=== PATIENT | female | born 1965 | race Caucasian/White ===

== ENCOUNTER 2016-12-16 20:54 | Emergency (ER) | payer OTHER ==
[~2016-12-16] VITALS: Ht 160 cm; Wt 70.3 kg
[~2016-12-16 20:54] MED LIST: ASPIR-LOW81 MG PO; ATARAX,VISTARIL25 MG PO; ATIVAN1 MG PO; Aspirin E.C. PO; BUSPAR5 MG PO; CIPROFLOXACIN250 MG PO; Halfprin PO; LAMICTAL25 MG PO; LEXAPRO10 MG PO; LORAZEPAM0.5 MG PO; METHOCARBAMOL500 MG PO; NO HOME MEDS; NOHOMEMEDS; Neurontin PO; PEPCID20 MG PO; PRAVASTATIN SOD20 MG PO; RISPERIDONE0.5 MG PO; RISPERIDONE1 MG PO; SERTRALINE HCL25 MG PO; SIMVASTATIN20 MG PO; ST. JOSEPH ASPI81 MG PO; TRAZODONE HCL50 MG PO; Tylenol Regular Stre PO; ULTRACET1 TABLET PO; ULTRAM50 MG PO; ZOLOFT25 MG PO
[2016-12-16] MEDS ORDERED: ULTRAM50 MG PO (22:17)
[2016-12-16] MEDS ORDERED: FLEXERIL10 MG PO (22:17)
[2016-12-16 22:54] VITALS: BP 148/90
== END 2016-12-16 22:55 | disposition home or self-care (01) ==
LOC: EME 20:54
DX: S16.1XXA Strain of muscle, fascia and tendon at neck level, initial encounter (principal); V49.9XXA Car occupant (driver) (passenger) injured in unspecified traffic accident, initial encounter
CPT/HCPCS: 99281; 99283

== ENCOUNTER 2017-06-11 06:24 | Emergency (ER) | payer OTHER ==
[~2017-06-11] VITALS: Ht 160 cm; Wt 70.9 kg
[~2017-06-11 06:24] MED LIST changes: +FLEXERIL10 MG PO
[2017-06-11 07:02] LABS: HEMATOCRIT 36.5 % (36.0-46.0); MCH 30.8 PG (29.0-34.0); MCHC 35.1 G/DL (30.0-36.0); MEAN PLAT.VOLUME 8.3 uM^3 (9.5-12.4); PLATELET COUNT 189 K/uL (156-360); RBC DIS.WIDTH-CV 11.9 % (11.8-14.6); RBC DIS.WIDTH-SD 37.8 % (39-53); RED BLOOD COUNT 4.15 M/uL (3.80-5.20); WHITE BLOOD COUNT 5.7 K/uL (4.1-10.2)
[2017-06-11 07:30] LABS: ADD MIUA? NO; BILIRUBIN NEGATIVE; BLOOD NEGATIVE; COLOR YELLOW ((YELLOW)); GLUCOSE (STRIP) NEGATIVE; KETONES NEGATIVE; LEUKOCYTES NEGATIVE; NITRITE NEGATIVE; PROTEIN (STRIP) NEGATIVE; SPECIFIC GRAVITY 1.018 (1.000-1.030); UCUL ADDED? NO; UROBILINOGEN 0.2 MG/DL (0.2-1.0)
[2017-06-11 07:54] LABS: ANION GAP 8 MEQ/L (2-14); CHLORIDE 105 MEQ/L (99-109); GFR ESTIMATE (CALCULATED) > 59 mL/min/; GLUCOSE 91 mg/dL (70-99); POTASSIUM 3.9 MEQ/L (3.7-5.4); SAMPLE HEMOLYSIS CHECK 0; SAMPLE ICTERIC CHECK 0; SAMPLE LIPEMIA CHECK 0; SODIUM 139 MEQ/L (136-147); UREA NITROGEN (BUN) 15 mg/dL (9-23)
[2017-06-11 08:04] VITALS: BP 110/80
== END 2017-06-11 08:29 | disposition home or self-care (01) ==
LOC: EME 06:24
PROVIDERS: Emergency Medicine
DX: K92.1 Melena (principal); M79.7 Fibromyalgia; J45.909 Unspecified asthma, uncomplicated
CPT/HCPCS: 80048; 81003; 85027; 99281; 99285